=== PATIENT | female | born 2000 | race Caucasian/White ===

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

== ENCOUNTER 2018-08-31 12:24 | Emergency (ER) | payer BC, OTHER ==
[2018-08-31 12:32] VITALS: BP 131/77; PULSE 83; TEMP 98.3; BMI 37.4
[2018-08-31] MEDS ORDERED: ONDANSETRON 4 MG/2 ML VIAL IVPUSH ONE (12:41)
[2018-08-31] MEDS ORDERED: SODIUM CHLORIDE 0.9% 500 ML INFUS.BAG IV ONE (12:41)
[2018-08-31] MEDS ORDERED: ACETAMINOPHEN 325 MG TABLET (FP) PO ONE (12:41)
--- NOTE | 2018-08-31 12:41 | PDOC ---
Attending Attestation - Resident Resident Name: Luis Jaeger - ED Attending Attestation I have performed the following: I have examined & evaluated the patient, The case was reviewed & discussed with the resident, I agree w/resident's findings & plan, Exceptions are as noted
--- NOTE | 2018-08-31 12:41 | PDOC ---
History of Present Illness - General Chief Complaint: Pain, Acute Stated Complaint: ABD PAIN Time Seen by Provider: 08/31/18 12:26 History Source: Patient Exam Limitations: No Limitations - History of Present Illness Initial Comments: 18 yo F w a hx of asthma, anxiety, panic disorder comes to the ED after multiple episodes of nausea and vomiting associated with significant epigastric abdominal pain which radiates to her back in a belt like distribution. The Nausea began yesterday afternoon and the vomiting began last night. She reports that she ate a Big Mac from [employer] for lunch and had salmon for dinner. When she was vomiting yesterday her vomitus originally contained the salmon and then afterwards was clear in color. She states she has been trying to drink alot of water but it is not easy. She denies drinking any alcohol yesterday. She also states the vomitus was NBNB. She admits to being sexually active with one recent partner and she did not use protection. She also admits to being STD and tested one month ago which all came back negative. She denies any recent fevers, chills, or infections. Denies any chest pain, SOB , or difficulty breathing. Denies any abnormal vaginal discharge. PCP: Dano Tavera PSH: Tonsillectomy Allergies: NKA, NKDA Social Hx: Denies drinking, smoking, or other illicit substance usage Meds: None Past History - Past Medical History Allergies/Adverse Reactions: Allergies Allergy/AdvReac Type Severity Reaction Status Date / Time No Known Allergies Allergy Verified 08/31/18 12:25 Home Medications: Ambulatory Orders Ondansetron HCl [Zofran] 4 mg PO PRN #14 tablet 08/31/18 Asthma: Yes ( CHILD) COPD: No - Immunization History Immunization Up to Date: Yes - Suicide/Smoking/Psychosocial Hx Smoking Status: No Smoking History: Never smoked Have you smoked in the past 12 months: No Number of Cigarettes Smoked Daily: 0 Hx Alcohol Use: No Drug/Substance Use Hx: No Substance Use Type: None Review of Systems - Review of Systems Able to Perform ROS?: Yes Comments:: CONSTITUTIONAL: Absent: fever, no chills, no fatigue EYES: Absent: visual changes ENT: Absent: ear pain, no sore throat CARDIOVASCULAR: Absent: chest pain, no palpitations RESPIRATORY: Absent: cough, no SOB GI: Present: Nausea, Vomiting, Abdominal pain Absent: no constipation, no diarrhea GENITOURINARY: Absent: dysuria, no frequency, no hematuria MUSKULOSKELETAL: Present: Back pain Absent: no arthralgia, no myalgia SKIN: Absent: rash NEURO: Absent: headache *Physical Exam - Vital Signs Last Vital Signs Temp Pulse Resp BP Pulse Ox 98.3 F 83 16 131/77 100 08/31/18 12:24 08/31/18 12:24 08/31/18 12:24 08/31/18 12:24 08/31/18 12:24 - Physical Exam Comments: GENERAL: Well-appearing, well-nourished. No apparent distress. HEENT: Normocephalic, atraumatic. PERRL, EOM intact. CARDIOVASCULAR: Normal S1, S2. Regular rate and rhythm. PULMONARY: Clear to auscultation bilaterally. ABDOMEN: There is TTP worst in the epigastric region, and also somewhat in the RUQ and LUQ. There is also some TTP in the dinora-umbilical region. Bowel sounds are normal. The abdomen is not distended, is soft to touch, and there is no rebound or guarding. EXTREMITIES: Normal ROM in all four extremities. No gross deformities. SKIN: Warm, dry. No rash NEUROLOGICAL: No focal neurological deficits. Moderate Sedation - Procedure Monitoring Vital Signs: Procedure Monitoring Vital Signs Temperature 98.3 F 08/31/18 12:24 Pulse Rate 83 08/31/18 12:24 Respiratory Rate 16 08/31/18 12:24 Blood Pressure 131/77 08/31/18 12:24 O2 Sat by Pulse Oximetry (%) 100 08/31/18 12:24 ED Treatment Course - LABORATORY CBC & Chemistry Diagram: 08/31/18 12:48 08/31/18 12:48 Medical Decision Making - Medical Decision Making 18 yo F w a hx of asthma, anxiety, panic disorder comes to the ED after multiple episodes of nausea and vomiting associated with significant epigastric abdominal pain which radiates to her back in a belt like distribution. DDx IBNLT: Pancreatitis, /ectopic, PUD, GERD, gastroenteritis, gallstones, food poisoning, ovarian pathology, appendicitis, kidney stones, uti/ pylo Plan: Cbc, Cmp, lipase, ua/uc, Hcg, IV hydration NS, Abdominal US, Zofran, analgesia, re-assess. Liapse normal, hcg negative. Labs otherwise WNL. Abdominal US showed a positive sonographic cancino sign but no sonographic evidence of cholecystitis. We believe this is likely gastroenteritis in nature. Will DC patient with zofran, soft diet, and strict education and return precautions for Appy. *DC/Admit/Observation/Transfer Diagnosis at time of Disposition: Gastroenteritis - Discharge Dispostion Disposition: HOME Condition at time of disposition: Stable Decision to Admit order: No - Prescriptions Prescriptions: Ondansetron HCl [Zofran] 4 mg PO PRN #14 tablet - Referrals Referrals: Dano Tavera MD [Primary Care Provider] - - Patient Instructions Printed Discharge Instructions: DI for Food Poisoning, How to Avoid Food Poisoning Additional Instructions: You came into the ER with abdominal pain, nausea and vomiting. We looked at your blood, urine and did an ultrasound which showed us that you do not have pancreatitis, are not , and do not have stones in your gallbladder. We believe you are experiencing a bad case of food poisoning. We are sending a medication to your pharmacy to help with your nausea. Please make sure to go and pick it up. Please make sure to follow up with your PCP in the next 3 to 5 days to make sure your pain is under control and getting better. Come back to the ER if your pain worsens, if you develop pain in the right side of your abdomen, if you develop a fever, or have any other new or worsening concerns. Thank you for coming to the [place] ED. We hope you feel better soon! Print Language: BERMUDIAN - Post Discharge Activity
[2018-08-31] MEDS ORDERED: ACETAMINOPHEN 325 MG TABLET (FP) ONE (12:45)
[2018-08-31] MEDS ORDERED: ONDANSETRON 4 MG/2 ML VIAL ONE (12:46)
[2018-08-31 13:02] LABS: HCG,QUALITATIVE URINE Negative
[2018-08-31 13:08] LABS: URINE APPEARANCE Clear; URINE BILIRUBIN Negative (NEGATIVE); URINE COLOR Yellow; URINE GLUCOSE (UA) Negative (NEGATIVE); URINE KETONE Negative (NEGATIVE); URINE LEUK ESTERASE 1+ (NEGATIVE); URINE NITRITE Negative (NEGATIVE); URINE PROTEIN Negative (NEGATIVE); URINE UROBILINOGEN 0.2 (0.2-1.0)
[2018-08-31 13:17] LABS: BASO % 0.8 % (0-2.0); EOS % 3.3 % (0-4.5); HEMATOCRIT 44.1 % (32.4-45.2); HEMOGLOBIN 14.2 GM/dl (10.7-15.3); LYMPH % 39.1 % (8-40); MCH 26.2 pg (25.7-33.7); MCHC 32.2 g/dl (32.0-36.0); MEAN CELL VOLUME 81.5 fl (80-96); MEAN PLT VOLUME 8.8 fl (7.5-11.1); MONO % 6.1 % (3.8-10.2); NEUT % 50.7 % (42.8-82.8); PLATELET COUNT 385 K/MM3 (134-434); RBC 5.41 M/mm3 (3.60-5.2); RDW 13.1 % (11.6-15.6); WHITE BLOOD COUNT 7.7 K/mm3 (4.0-10.8)
[2018-08-31 13:53] LABS: ALBUMIN 4.3 g/dl (3.5-5.0); ALK PHOS 48 U/L (32-92); ANION GAP 4 MMOL/L (8-16); BILIRUBIN,TOTAL 0.8 mg/dl (0.2-1.0); BLOOD UREA NITROGEN 14 mg/dl (7-18); CHLORIDE 106 mmol/L (98-107); CO2 23 mmol/L (22-28); CREATININE 0.6 mg/dl (0.6-1.3); GLUCOSE,RANDOM 92 mg/dl (74-106); POTASSIUM 4.2 mmol/L (3.5-5.1); SGOT/AST 16 U/L (10-42); SGPT/ALT 17 U/L (10-40); SODIUM 133 mmol/L (136-145); TOT PROT 7.5 g/dl (6.4-8.3)
[2018-08-31 14:32] LABS: EPI CELLS 3+ /HPF; URINE BACTERIA 1+ /hpf (NEGATIVE); URINE MUCUS 3+; URINE RBC 0-2 /hpf (0-3)
[2018-08-31 14:58] LABS: LIPASE 92 U/L (73-393)
== END 2018-08-31 16:48 | disposition home or self-care (01) ==
LOC: FER 12:24
PROC: 3E0337Z Introduction of Electrolytic and Water Balance Substance into Peripheral Vein, Percutaneous Approach (ICD-10-PCS; principal; 2018-08-31)
PROC: 3E033GC Introduction of Other Therapeutic Substance into Peripheral Vein, Percutaneous Approach (ICD-10-PCS; 2018-08-31)
DX: K52.9 Noninfective gastroenteritis and colitis, unspecified (principal)
CPT/HCPCS: 36415; 76705-TC; 80053; 81003; 81015; 83690; 84703; 85025; 96374; 99283-25

== ENCOUNTER 2019-04-10 22:47 | Emergency (ER) | payer OTHER ==
[2019-04-10 22:54] VITALS: BP 144/97; PULSE 86; TEMP 98.2; BMI 40.8
[2019-04-11] MEDS ORDERED: KETOROLAC TROMETHAMINE 60 MG/2 ML VIAL IM ONE (00:53)
[2019-04-11] MEDS ORDERED: KETOROLAC TROMETHAMINE 60 MG/2 ML VIAL ONE (00:55)
--- NOTE | 2019-04-11 02:07 | PDOC ---
Documentation entered by Rosa John SCRIBE, acting as scribe for Hilary Morfin MD. Hilary Morfin MD: This documentation has been prepared by the Dora owen Brenda, SCRIBE, under my direction and personally reviewed by me in its entirety. I confirm that the documentation accurately reflects all work, treatment, procedures, and medical decision making performed by me. History of Present Illness - General Chief Complaint: Pain, Acute Stated Complaint: DISLOCATED RIGHT SHOULDER History Source: Patient Exam Limitations: No Limitations - History of Present Illness Initial Comments: 04/10/19 23:33 The patient is a 19 year old female, with a significant PMH of asthma, anxiety and panic disorder, who presents to the emergency department with right shoulder pain s/p fall. The patient reports that she was walking to work this morning, at which time she tripped on a hole due to her shoes being unlaced and fell on her right side. The patient states that she worked throughout the day but had very limited range of motion and pain in the right shoulder and right elbow, aggravated by minimal movement. She also notes mostly using her left arm throughout her work day. The patient denies chest pain, shortness of breath, headache and dizziness. Denies fever, chills, nausea, vomiting, diarrhea and constipation. Denies dysuria, frequency, urgency and hematuria. Denies any other symptoms. Allergies: Sulfur. Past surgical history: Tonsillectomy. Social history: Notes recent hookah use, but denies frequent tobacco use, alcohol use or illicit drug use. PCP: Dr. Dano Tavera Past History - Past Medical History Allergies/Adverse Reactions: Allergies Allergy/AdvReac Type Severity Reaction Status Date / Time No Known Allergies Allergy Verified 04/10/19 22:48 Home Medications: Ambulatory Orders Diclofenac Sodium [Voltaren -] 75 mg PO BID PRN #14 tablet. 04/11/19 Asthma: Yes ( CHILD) COPD: No - Immunization History Immunization Up to Date: Yes - Suicide/Smoking/Psychosocial Hx Smoking Status: No Smoking History: Never smoked Have you smoked in the past 12 months: No Number of Cigarettes Smoked Daily: 0 Hx Alcohol Use: No Drug/Substance Use Hx: No Substance Use Type: None Review of Systems - Review of Systems Able to Perform ROS?: Yes Comments:: 04/10/19 23:34 GENERAL/CONSTITUTIONAL: No fever or chills. No weakness. HEAD, EYES, EARS, NOSE AND THROAT: No change in vision. No ear pain or discharge. No sore throat. CARDIOVASCULAR: No chest pain or shortness of breath. RESPIRATORY: No cough, wheezing, or hemoptysis. GASTROINTESTINAL: No nausea, vomiting, diarrhea or constipation. GENITOURINARY: No dysuria, frequency, or change in urination. MUSCULOSKELETAL: +Right shoulder pain. +Right elbow pain.+Mild swelling on right upper extremity. No neck or back pain. SKIN: No rash NEUROLOGIC: No headache, vertigo, loss of consciousness, or change in strength/ sensation. ENDOCRINE: No increased thirst. No abnormal weight change. HEMATOLOGIC/LYMPHATIC: No anemia, easy bleeding, or history of blood clots. ALLERGIC/IMMUNOLOGIC: No hives or skin allergy. *Physical Exam - Vital Signs Last Vital Signs Temp Pulse Resp BP Pulse Ox 98.2 F 86 16 144/97 100 04/10/19 22:49 04/10/19 22:49 04/10/19 22:49 04/10/19 22:49 04/10/19 22:49 - Physical Exam Comments: 04/10/19 23:34 GENERAL: Awake, alert, and fully oriented, in no acute distress HEAD: No signs of trauma EYES: PERRLA, EOMI, sclera anicteric, conjunctiva clear ENT: Auricles normal inspection, hearing grossly normal. Moist mucosa NECK: Normal ROM, supple. LUNGS: Breath sounds equal, clear to auscultation bilaterally. No wheezes, and no crackles HEART: Regular rate and rhythm, normal S1 and S2, no murmurs, rubs or gallops EXTREMITIES: +right shoulder is mildly edematous with tenderness of the superior portion. +pain with abduction of upper right arm greater than 20 degrees. No ecchymosis or deformity noticed. No clubbing or cyanosis. No cords, no erythema. NEUROLOGICAL: Cranial nerves II through XII grossly intact. Normal speech, normal gait SKIN: Warm, Dry, normal turgor, no rashes or lesions noted. ED Treatment Course - RADIOLOGY Radiology Studies Ordered: Category Date Time Status SHOULDER-RIGHT [RAD] Stat Radiology 04/10/19 23:00 Taken Medical Decision Making - Medical Decision Making As noted above, this 19-year-old woman with a history of asthma and anxiety presents with injury to her right shoulder, sustained approximately 12 hours prior to presentation when she tripped and fell striking her shoulder against concrete. 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 Tonight, she had [id number] ibuprofen (a few hours prior to presentation) with persistent pain. Exam is noted. Right shoulder x-ray performed. Preliminary reading by me: No evidence of fracture/dislocation. No widening of the AC joint Clinical presentation most consistent with soft tissue injury of the right shoulder(sprain/strain/contusion). Toradol 60 mg IM given for anti-inflammatory/analgesia. Diclofenac 75 mg twice a day as needed for pain prescribed Patient does not have orthopedist currently. She will be given referral information for [facility]. She should call the office in the morning to arrange follow-up within the next 2-3 days. Meanwhile, sling should be used when up and around. She should not work until cleared by orthopedics (work documentation provided for the patient) *DC/Admit/Observation/Transfer Diagnosis at time of Disposition: Sprain of shoulder, right Qualifiers: Encounter type: initial encounter Shoulder sprain type: unspecified sprain Qualified Code(s): S43.401A - Unspecified sprain of right shoulder joint, initial encounter - Discharge Dispostion Disposition: HOME Condition at time of disposition: Stable - Prescriptions Prescriptions: Diclofenac Sodium [Voltaren -] 75 mg PO BID PRN #14 tablet.dr SHAW Reason: Moderate Pain - Referrals Referrals: Joey Michele MD [Staff Physician] - - Patient Instructions Printed Discharge Instructions: Shoulder Sprain Additional Instructions: diclofenac 75mg twice a day as needed can ice shoulder for the next day use sling for the next 2-3 days no work until seen by orthopedist call [facility] tomorrow to arrange followup within 2-3 days - Post Discharge Activity Forms/Work/School Notes: Back to Work
== END 2019-04-11 01:15 | disposition home or self-care (01) ==
LOC: FER 22:47
PROC: 3E0233Z Introduction of Anti-inflammatory into Muscle, Percutaneous Approach (ICD-10-PCS; principal; 2019-04-10)
PROC: 3E0233Z Introduction of Anti-inflammatory into Muscle, Percutaneous Approach (ICD-10-PCS; 2019-04-10)
DX: M79.89 Other specified soft tissue disorders (principal); S43.401A Unspecified sprain of right shoulder joint, initial encounter; J45.909 Unspecified asthma, uncomplicated; X58.XXXA Exposure to other specified factors, initial encounter; Y93.89 Activity, other specified; Y92.89 Other specified places as the place of occurrence of the external cause; F41.9 Anxiety disorder, unspecified
CPT/HCPCS: 73030-TC-RT-FY; 96372; 99281-25

== ENCOUNTER 2019-11-22 17:25 | Emergency (ER) | payer BC, OTHER ==
[2019-11-22] MEDS ORDERED: ALBUTEROL SO4 2.5/IPRATROPIUM 0.5 INH SOL 3 ML VIAL.NEB. NEB ONE ×2 (17:51→18:08)
--- NOTE | 2019-11-22 18:02 | PDOC ---
History of Present Illness - General Chief Complaint: Respiratory Stated Complaint: COUGH Time Seen by Provider: 11/22/19 17:39 History Source: Patient Exam Limitations: No Limitations - History of Present Illness Initial Comments: 11/22/19 17:57 Healthy 19-year-old female with history of distant childhood asthma presents with cough for 1 week. Patient symptoms began with nasal congestion/chills and dry cough, URI symptoms resolved now with persistent dry cough occasionally productive of yellow sputum, no hemoptysis, no chest pain or shortness of breath or dyspnea on exertion. No weight loss or night sweats. Has had bronchitis requiring steroids in the past, so she presents for evaluation with her sister, who is also sick with GI symptoms. No recent travel, no known sick contacts including any COVID 19 suspected patients, non-smoker and no drug use. No history of pneumonia. Has no other complaints - her mom made both her sister and patient come in to get checked out. Past History - Past Medical History Allergies/Adverse Reactions: Allergies Allergy/AdvReac Type Severity Reaction Status Date / Time No Known Allergies Allergy Verified 11/22/19 17:51 Home Medications: Ambulatory Orders Methylprednisolone [Medrol Dose Robinson] 4 mg PO ASDIR #21 tablet 11/22/19 Asthma: Yes ( CHILD) COPD: No - Immunization History Immunization Up to Date: Yes - Psycho Social/Smoking Cessation Hx Smoking Status: No Smoking History: Never smoked Have you smoked in the past 12 months: No Number of Cigarettes Smoked Daily: 0 Hx Alcohol Use: No Drug/Substance Use Hx: No Substance Use Type: None Review of Systems - Review of Systems Constitutional: No: Chills, Fever, Night Sweats, Unintentional Wgt. Loss HEENTM: Yes: Nose Congestion. No: Throat Pain, Throat Swelling Respiratory: Yes: Cough. No: Shortness of Breath, SOB with Exertion, Stridor Cardiac (ROS): No: Chest Pain ABD/GI: No: Diarrhea, Vomiting Neurological: No: Headache All Other Systems: Reviewed and Negative *Physical Exam - Physical Exam 11/22/19 17:59 Afebrile, O2 sat 99% on room air GENERAL: The patient is awake, alert, and fully oriented, in no acute distress speaking full sentences. No cough during history or exam.] HEAD: Normal with no signs of trauma.] EYES: PERRL, EOMI.] ENT: oropharynx clear without exudates. Moist mucous membranes. No stridor.] NECK: Normal range of motion, supple without lymphadenopathy.] LUNGS: Breath sounds equal, clear to auscultation bilaterally. No wheeze/crackles or focally decreased breath sounds. Good air entry b/l.] HEART: Regular rate and rhythm, normal S1 and S2 without murmur or rub. EXTREMITIES: Normal range of motion, no edema. 2+ distal pulses. No cords, erythema, or tenderness. NEUROLOGICAL: Cranial nerves II through XII grossly intact. Normal speech, normal gait. PSYCH: Normal mood, normal affect. SKIN: Warm, Dry, no rashes or lesions noted. Subtle petechiae to cheeks developed after forceful cough yesterday (no hive/cellulitis) ED Treatment Course - RADIOLOGY Radiology Studies Ordered: Category Date Time Status CHEST PA & LAT [RAD] Stat Radiology 11/22/19 17:51 Ordered Medical Decision Making - Medical Decision Making 11/22/19 18:02 healthy 19y/o F with dry cough for one week in setting of preceding URI illness, likely viral. well appearing here without respiratory distress or abnormal findings on exam. likely viral bronchitis, r/o underlying pna. no red flags for covid-19 and would be out of window for benefit of tamiflu if influenza. cxr nebulizer will d/c on steroids, abx if pna on cxr 11/22/19 18:18 on my prelim review, cxr has no acute infiltrate or abnormality. received neb. will d/c on medrol dosepack for bronchitis. respiratory/hand hygeine discussed, understands return criteria Discharge - Discharge Information Problems reviewed: Yes Clinical Impression/Diagnosis: Bronchitis Condition: Good Disposition: HOME - Additional Discharge Information Prescriptions: Methylprednisolone [Medrol Dose Robinson] 4 mg PO ASDIR #21 tablet - Follow up/Referral Referrals: Dano Tavera MD [Primary Care Provider] - - Patient Discharge Instructions Patient Printed Discharge Instructions: DI for Acute Bronchitis Additional Instructions: Activity as tolerated. Stay hydrated. Your symptoms are likely due to a viral bronchitis, a chest x-ray shows no evidence of pneumonia. Take Medrol Dosepak as prescribed as course of antibiotics. Tylenol 1000 mg every 8 hours and/or ibuprofen 600 mg every 8 hours as needed for fever/pain. Continue your medications as previously prescribed by your physician. You should follow up with Dr. Tavera regarding today's emergency department visit. Return to the emergency department for any new or concerning symptoms, particularly persistent or worsening cough, difficulty breathing, fevers or chills, chest pain. - Post Discharge Activity
[2019-11-22 18:04] VITALS: BP 126/68; PULSE 79; TEMP 98; BMI 44.6
== END 2019-11-22 18:33 | disposition home or self-care (01) ==
LOC: FER 17:25
PROC: 3E0F7GC Introduction of Other Therapeutic Substance into Respiratory Tract, Via Natural or Artificial Opening (ICD-10-PCS; principal; 2019-11-22)
DX: J40 Bronchitis, not specified as acute or chronic (principal)
CPT/HCPCS: 71046-TC-FY; 99283-25

== ENCOUNTER 2022-03-30 10:23 | Emergency (ER) | payer BC, OTHER ==
[2022-03-30 10:40] VITALS: TEMP 98; BMI 48.6
[2022-03-30] MEDS ORDERED: SODIUM CHLORIDE 1,000 ML IV STA (11:29)
[2022-03-30] MEDS ORDERED: FAMOTIDINE 20 MG/50 ML IVPB 20 MG/50 ML MG IVPB ONE ×2 (11:29→12:14)
[2022-03-30] MEDS ORDERED: ONDANSETRON 4 MG/2 ML VIAL IVPUSH ONE (11:29)
[2022-03-30] MEDS ORDERED: ACETAMINOPHEN 1000 MG/100 ML BAG IVPB ONE (11:30)
[2022-03-30] MEDS ORDERED: ONDANSETRON 4 MG/2 ML VIAL ONE (12:14)
[2022-03-30 12:40] LABS: BASO % 0.8 % (0-2.0); EOS % 3.8 % (0-4.5); HEMATOCRIT 41.7 % (32.4-45.2); HEMOGLOBIN 13.6 GM/dL (10.7-15.3); LYMPH % 37.6 % (8-40); MCH 26.3 pg (25.7-33.7); MCHC 32.6 g/dl (32.0-36.0); MEAN CELL VOLUME 80.6 fl (80-96); MEAN PLT VOLUME 8.4 fl (7.5-11.1); NEUT % 51.8 % (42.8-82.8); PLATELET COUNT 369 10^3/uL (134-434); RBC 5.18 M/mm3 (3.60-5.2); RDW 14.1 % (11.6-15.6); WHITE BLOOD COUNT 9.4 K/mm3 (4.0-10.0)
[2022-03-30 12:58] LABS: ALBUMIN 3.9 g/dl (3.4-5.0); CALCIUM 9.2 mg/dL (8.5-10.1)
[2022-03-30 13:01] LABS: CREATININE 0.6 mg/dL (0.55-1.3)
[2022-03-30 13:02] LABS: TOT PROT 7.3 g/dl (6.4-8.2)
[2022-03-30 13:03] LABS: BILIRUBIN,TOTAL 0.4 mg/dL (0.2-1)
[2022-03-30 13:21] LABS: URINE APPEARANCE CLEAR; URINE BILIRUBIN NEGATIVE (NEGATIVE); URINE COLOR YELLOW; URINE GLUCOSE (UA) NEGATIVE (NEGATIVE); URINE KETONE NEGATIVE (NEGATIVE); URINE LEUK ESTERASE NEGATIVE (NEGATIVE); URINE NITRITE NEGATIVE (NEGATIVE); URINE PROTEIN NEGATIVE (NEGATIVE)
[2022-03-30 13:23] LABS: HCG,QUALITATIVE URINE Negative
[2022-03-30] MEDS ORDERED: ACETAMINOPHEN INJECTION 100 ML IVPB ONE (13:36)
[2022-03-30 16:32] VITALS: BP 113/59; PULSE 70
== END 2022-03-30 16:41 | disposition home or self-care (01) ==
LOC: JER 10:23
PROC: 3E033GC Introduction of Other Therapeutic Substance into Peripheral Vein, Percutaneous Approach (ICD-10-PCS; principal; 2022-03-30)
DX: R11.2 Nausea with vomiting, unspecified (principal); R19.7 Diarrhea, unspecified
CPT/HCPCS: 36415; 76705-TC; 80053; 81003; 83690; 84703; 85025; 86140; 87086; 99285-25

== ENCOUNTER 2022-10-21 13:31 | Emergency (ER) | payer OTHER ==
[2022-10-21 13:55] VITALS: BP 131/84; PULSE 85; RESP 20; TEMP 97.7; BMI 45.7
[2022-10-21] MEDS ORDERED: ACETAMINOPHEN 500 MG TABLET (FP) PO ONE (14:40)
[2022-10-21] MEDS ORDERED: DIPHTH,PERTUSS(ACELL),TET 0.5 ML DISP.SYRIN IM ONE ×2 (14:41→14:51)
[2022-10-21] MEDS ORDERED: ACETAMINOPHEN 500 MG TABLET (FP) ONE (14:51)
== END 2022-10-21 16:08 | disposition home or self-care (01) ==
LOC: JER 13:31 → JERFT 13:31
PROC: 3E0234Z Introduction of Serum, Toxoid and Vaccine into Muscle, Percutaneous Approach (ICD-10-PCS; principal; 2022-10-21)
DX: S63.502A Unspecified sprain of left wrist, initial encounter (principal); W23.0XXA Caught, crushed, jammed, or pinched between moving objects, initial encounter
CPT/HCPCS: 73110-TC-LT-FY; 73130-TC-LT-FY; 90715; 99283-25

== ENCOUNTER 2023-05-07 16:15 | Inpatient (IN) | payer OTHER ==
[2023-05-07] MEDS ORDERED: VANCOMYCIN 1 GRAM (PRE-DOCKED) 1,000 MG/250 ML BAG IVPB ONE (18:54)
[2023-05-07 19:00] LABS: BASO % 0.5 % (0-2.0); HEMATOCRIT 41.2 % (32.4-45.2); HEMOGLOBIN 13.6 GM/dL (10.7-15.3); LYMPH % 23.2 % (8-40); MCH 26.8 pg (25.7-33.7); MCHC 32.9 g/dl (32.0-36.0); MEAN CELL VOLUME 81.4 fl (80-96); MEAN PLT VOLUME 8.1 fl (7.5-11.1); MONO % 6.9 % (3.8-10.2); NEUT % 67.4 % (42.8-82.8); PLATELET COUNT 307 10^3/uL (134-434); RBC 5.06 M/mm3 (3.60-5.2); RDW 13.9 % (11.6-15.6); WHITE BLOOD COUNT 12.8 K/mm3 (4.0-10.0)
[2023-05-07] MEDS ORDERED: VANCOMYCIN 1,000 MG in DEXTROSE 5%-WATER - 250 ML IVPB ONE (19:01)
[2023-05-07 19:32] LABS: POTASSIUM 4.5 mmol/L (3.5-5.1)
[2023-05-07 19:33] LABS: CALCIUM 8.7 mg/dL (8.5-10.1)
[2023-05-07 19:34] LABS: ALBUMIN 4.1 g/dl (3.4-5.0)
[2023-05-07 19:37] LABS: CREATININE 0.7 mg/dL (0.55-1.3)
[2023-05-07 19:39] LABS: BILIRUBIN,TOTAL 0.6 mg/dL (0.2-1); TOT PROT 7.2 g/dl (6.4-8.2)
[2023-05-07] MEDS ORDERED: SODIUM CHLORIDE 0.9% 500 ML INFUS.BAG IV ONE (20:32)
[2023-05-07] MEDS ORDERED: CEFTRIAXONE 1,000 MG in DEXTROSE 5%-WATER - 50 ML IVPB ONE (20:53)
[2023-05-07] MEDS ORDERED: CEFTRIAXONE 1 GM/50 ML BAG ONE (21:11)
[2023-05-07] MEDS ORDERED: ACETAMINOPHEN 325 MG TABLET (FP) ONE (21:13)
[2023-05-08] MEDS: VANCOMYCIN 1,000 MG in DEXTROSE 5%-WATER - 250 ML IVPB SCH ×2 (01:44→12:40)
[2023-05-08] MEDS: ACETAMINOPHEN 325 MG TABLET (FP) PO PRN ×2 (03:13→17:39)
[2023-05-08 05:31] VITALS: BMI 48.6
[2023-05-08] MEDS: INSULIN SLIDING SCALE (NOVOLOG) 1 VIAL SQ SCH ×3 (07:15→16:39)
[2023-05-08 09:13] LABS: BASO % 0.3 % (0-2.0); EOS % 2.1 % (0-4.5); HEMOGLOBIN 12.4 GM/dL (10.7-15.3); LYMPH % 15.6 % (8-40); MCH 27.1 pg (25.7-33.7); MCHC 33.6 g/dl (32.0-36.0); MEAN CELL VOLUME 80.7 fl (80-96); MEAN PLT VOLUME 8.3 fl (7.5-11.1); MONO % 7.6 % (3.8-10.2); NEUT % 74.4 % (42.8-82.8); PLATELET COUNT 268 10^3/uL (134-434); RBC 4.58 M/mm3 (3.60-5.2); RDW 14.4 % (11.6-15.6); WHITE BLOOD COUNT 12.4 K/mm3 (4.0-10.0)
[2023-05-08 09:42] LABS: POTASSIUM 4.1 mmol/L (3.5-5.1)
[2023-05-08 09:51] LABS: ALBUMIN 3.4 g/dl (3.4-5.0); CALCIUM 8.3 mg/dL (8.5-10.1)
[2023-05-08 09:57] LABS: CREATININE 0.6 mg/dL (0.55-1.3)
[2023-05-08 09:58] LABS: TOT PROT 6.2 g/dl (6.4-8.2)
[2023-05-08 09:59] LABS: BILIRUBIN,TOTAL 0.5 mg/dL (0.2-1)
[2023-05-08] MEDS ORDERED: PIPERACILLIN/TAZOB 3.375 GM 3.375 GM in DEXTROSE 5%-WATER - 50 ML IVPB SCH (10:00)
[2023-05-08] MEDS: VANCOMYCIN/WATER 1250 MG 1,250 MG/250 ML BAG IVPB SCH (22:33)
[2023-05-08] MEDS ORDERED: VANCOMYCIN 1,000 MG in DEXTROSE 5%-WATER - 250 ML IVPB SCH (23:30)
[2023-05-09] MEDS: VANCOMYCIN/WATER 1250 MG 1,250 MG/250 ML BAG IVPB SCH ×2 (09:56→21:30)
[2023-05-09] MEDS ORDERED: PIPERACILLIN/TAZOB 3.375 GM 3.375 GM in DEXTROSE 5%-WATER - 50 ML IVPB SCH (10:00)
[2023-05-10] MEDS: VANCOMYCIN/WATER 1250 MG 1,250 MG/250 ML BAG IVPB SCH ×3 (10:07→22:55)
[2023-05-10] MEDS: ACETAMINOPHEN 325 MG TABLET (FP) PO PRN (10:24)
[2023-05-11] MEDS: VANCOMYCIN/WATER 1250 MG 1,250 MG/250 ML BAG IVPB SCH (10:03)
[2023-05-11] MEDS: ACETAMINOPHEN 325 MG TABLET (FP) PO PRN (11:20)
[2023-05-11 12:47] LABS: BASO % 1.2 % (0-2.0); EOS % 4.5 % (0-4.5); HEMATOCRIT 42.2 % (32.4-45.2); HEMOGLOBIN 13.8 GM/dL (10.7-15.3); LYMPH % 38.9 % (8-40); MCH 26.9 pg (25.7-33.7); MCHC 32.6 g/dl (32.0-36.0); MEAN CELL VOLUME 82.6 fl (80-96); MEAN PLT VOLUME 8.6 fl (7.5-11.1); MONO % 5.5 % (3.8-10.2); NEUT % 49.9 % (42.8-82.8); PLATELET COUNT 385 10^3/uL (134-434); RBC 5.11 M/mm3 (3.60-5.2); RDW 13.8 % (11.6-15.6); WHITE BLOOD COUNT 7.4 K/mm3 (4.0-10.0)
[2023-05-11 13:56] LABS: POTASSIUM 5.1 mmol/L (3.5-5.1)
[2023-05-11 14:31] LABS: ALBUMIN 3.9 g/dl (3.4-5.0); BLOOD UREA NITROGEN 9.6 mg/dL (7-18); CALCIUM 9.1 mg/dL (8.5-10.1)
[2023-05-11 14:35] LABS: CREATININE 0.7 mg/dL (0.55-1.3)
[2023-05-11 14:36] LABS: TOT PROT 7.3 g/dl (6.4-8.2)
[2023-05-11 14:37] LABS: BILIRUBIN,TOTAL 0.5 mg/dL (0.2-1)
[2023-05-11 15:08] VITALS: BP 153/73; PULSE 90; RESP 20; TEMP 97.7
[2023-05-11] MEDS ORDERED: DOXYCYCLINE HYCLATE 100 MG CAPSULE PO SCH (18:00)
== END 2023-05-11 20:00 | disposition home or self-care (01) | DRG 603 ==
LOC: JERFT 16:15 → JERBED 21:02 → J8W 05-08 02:51
PROVIDERS: ADMIT Internal Medicine; ATTEND Internal Medicine
DX: L03.115 Cellulitis of right lower limb (principal); Z68.42 Body mass index [BMI] 45.0-49.9, adult; L02.611 Cutaneous abscess of right foot; R50.9 Fever, unspecified; S90.424A Blister (nonthermal), right lesser toe(s), initial encounter; D72.829 Elevated white blood cell count, unspecified; L08.9 Local infection of the skin and subcutaneous tissue, unspecified; B95.62 Methicillin resistant Staphylococcus aureus infection as the cause of diseases classified elsewhere; E11.65 Type 2 diabetes mellitus with hyperglycemia; E66.01 Morbid (severe) obesity due to excess calories; X58.XXXA Exposure to other specified factors, initial encounter; Y92.098 Other place in other non-institutional residence as the place of occurrence of the external cause
CPT/HCPCS: 36415; 73630-TC-RT-FY; 73721-RT-TC; 80053; 82962; 83036; 83605; 84703; 85025; 86140; 87040; 87070; 87186; 87205; 87635; 99285-25; G0480

== ENCOUNTER 2023-11-14 14:53 | Emergency (ER) | payer OTHER ==
[2023-11-14 16:03] VITALS: BP 134/63; PULSE 71; RESP 18; TEMP 98.5; BMI 44.9
[2023-11-14] MEDS ORDERED: ONDANSETRON 4 MG/2 ML VIAL ONE (16:56)
[2023-11-14] MEDS ORDERED: ACETAMINOPHEN INJECTION 100 ML IVPB ONE (16:56)
[2023-11-14 17:01] LABS: BASO % 0.7 % (0-2.0); EOS % 2.2 % (0-4.5); HEMATOCRIT 42.2 % (32.4-45.2); HEMOGLOBIN 14.2 GM/dL (10.7-15.3); LYMPH % 24.9 % (8-40); MCH 27.1 pg (25.7-33.7); MCHC 33.6 g/dl (32.0-36.0); MEAN CELL VOLUME 80.5 fl (80-96); MEAN PLT VOLUME 7.7 fl (7.5-11.1); MONO % 6.3 % (3.8-10.2); NEUT % 65.9 % (42.8-82.8); PLATELET COUNT 321 10^3/uL (134-434); RBC 5.24 M/mm3 (3.60-5.2); RDW 13.9 % (11.6-15.6)
[2023-11-14] MEDS: ONDANSETRON 4 MG/2 ML VIAL IVPUSH ONE (17:04)
[2023-11-14] MEDS: ACETAMINOPHEN 1000 MG/100 ML BAG IVPB ONE (17:04)
[2023-11-14] MEDS: SODIUM CHLORIDE 0.9% 500 ML INFUS.BAG IV ONE (17:04)
[2023-11-14 17:17] LABS: POTASSIUM 4.3 mmol/L (3.5-5.1)
[2023-11-14 17:20] LABS: ALBUMIN 3.8 g/dl (3.4-5.0); BLOOD UREA NITROGEN 11.5 mg/dL (7-18)
[2023-11-14 17:23] LABS: CREATININE 0.6 mg/dL (0.55-1.3)
[2023-11-14 17:24] LABS: BILIRUBIN,TOTAL 0.7 mg/dL (0.2-1)
[2023-11-14 17:26] LABS: TOT PROT 7.2 g/dl (6.4-8.2)
== END 2023-11-14 21:39 | disposition home or self-care (01) ==
LOC: JER 14:53
PROC: 3E033NZ Introduction of Analgesics, Hypnotics, Sedatives into Peripheral Vein, Percutaneous Approach (ICD-10-PCS; principal; 2023-11-14)
PROC: 3E033GC Introduction of Other Therapeutic Substance into Peripheral Vein, Percutaneous Approach (ICD-10-PCS; 2023-11-14)
DX: R10.11 Right upper quadrant pain (principal); R11.2 Nausea with vomiting, unspecified; R07.81 Pleurodynia; I88.0 Nonspecific mesenteric lymphadenitis
CPT/HCPCS: 36415; 71046-TC-FY; 74177-TC; 80053; 82150; 83690; 84703; 85025; 99285-25; J0131; Q9967

== ENCOUNTER 2025-01-11 13:01 | Emergency (ER) | payer OTHER ==
[2025-01-11 13:09] VITALS: BP 125/82; PULSE 72; RESP 16; TEMP 98.5; BMI 47.9
== END 2025-01-11 15:00 | disposition home or self-care (01) ==
LOC: JERFT 13:01
PROC: 2W3QX1Z Immobilization of Right Lower Leg using Splint (ICD-10-PCS; principal; 2025-01-11)
DX: M25.571 Pain in right ankle and joints of right foot (principal); W18.30XA Fall on same level, unspecified, initial encounter
CPT/HCPCS: 73610-TC-RT-FY; 73630-TC-RT-FY; 99283-25